=== PATIENT | female | born 1945 | race Caucasian/White ===

== ENCOUNTER → 2023-11-04 13:03 | Outpatient (REF) | payer OTHER, SELFPAY | LOC: WDC 13:03 | PROVIDERS: ATTENDING PHYSICIAN Internal Medicine Hematology & Oncology; FAMILY PHYSICIAN Internal Medicine | DX: R92.8 Other abnormal and inconclusive findings on diagnostic imaging of breast (principal); Z85.3 Personal history of malignant neoplasm of breast; C50.111 Malignant neoplasm of central portion of right female breast | CPT/HCPCS: 76642 ==

== ENCOUNTER → 2024-04-21 10:43 | Outpatient (REF) | payer OTHER, SELFPAY | LOC: MRI 3T 10:43 | PROVIDERS: ATTENDING PHYSICIAN Surgery; FAMILY PHYSICIAN Internal Medicine | DX: C50.411 Malignant neoplasm of upper-outer quadrant of right female breast (principal); N64.59 Other signs and symptoms in breast; R92.8 Other abnormal and inconclusive findings on diagnostic imaging of breast | CPT/HCPCS: 77049; A9585 ==

== ENCOUNTER 2025-05-09 05:54 | Day surgery (SDC) | payer OTHER, SELFPAY ==
[2025-04-25 11:26] LABS: Hematocrit 40.2 % (37.0-47.0); Hemoglobin 13.8 g/dL (12.0-16.0); Mean Corp Hgb Conc. 34.3 g/dL (33.0-37.0); Mean Corpuscular Volume 84.3 fL (81.0-99.0); Platelet Count 233 10^3/uL (130-400); Red Cell Dist. Width 12.2 % (11.5-14.5)
[2025-04-25 11:57] LABS: ALT (SGPT) 16 U/L (0-35); AST (SGOT) 22 U/L (14-36); Albumin 4.0 g/dl (3.5-5.0); Alkaline Phosphatase 101 U/L (38-126); Blood Urea Nitrogen 15 mg/dl (7-17); Calcium 10.8 mg/dl (8.4-10.2); Carbon Dioxide 24 mmol/L (22-30); Chloride 110 mmol/L (98-107); Glucose 84 mg/dl (70-99); Potassium 4.4 mmol/L (3.5-5.1); Sodium 141 mmol/L (135-145); Total Protein 6.9 g/dl (6.3-8.2); eGFR > 60.00
[2025-04-25 13:53] VITALS: BMI 27.7
[2025-04-25 14:53] LABS: Glycohemoglobin (HgbA1c) 5.2 % (4.0-5.6)
[2025-04-25 16:03] VITALS: BMI 27.7
--- NOTE | 2025-04-26 10:55 | VNURNOTE ---
Patient is scheduled for an elective R TKA on 05/09 - she is a same day patient with Dr Reynoso. Spoke with patient prior to surgery. Introduced role of [facility] Liaison. Patient reports that she lives with her spouse in a split level story home.
There are 3 steps to enter and a 6 to the second floor.
There is a bathroom on the upper level. She has a rolling walker.
PCP is Dr Juan Manuel Villavicencio
Discussed [facility] joint protocol and post surgical plans.
Reviewed that she will have VN services initially and will then start outpatient PT.
Patient selects [facility] for home care needs and will go [facility]. She has to schedule appt. Advised to schedule May 15. Provided contact number for Amb Center.
Patient is in agreement with plan and states that her spouse will be home with her. Advised to bring RW day of surgery. Referral placed in [facility].
Plan: [facility] per [facility] joint protocol 05/09 then outpt PT TBD (recommended to schedule 05/15)
[2025-05-09] VITALS (16 sets, daily range): BP systolic 105–178; BP diastolic 53–102; PULSE 52; O2SAT 96
[2025-05-09] MEDS: CELEBREX 200 MG PO (06:19)
[2025-05-09] MEDS: TYLENOL 650 MG PO (06:19)
[2025-05-09] MEDS: NORMOSOL-R/PLASMALYTE-A 1000 IV ×2 (06:34→10:31)
--- NOTE | 2025-05-09 07:37 | W.DS.TRANS ---
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
-
Discharge Instructions:
Sleep Apnea Risk Low
Discharge Diagnosis/Procedures R TKA Dr. Reynoso 05/09/25-SDS
Diet As tolerated
Driving Restrictions No driving
Bathing Restrictions OK to Shower
Other Services PT
Instructions:
Stand-Alone Forms: SDS Total Hip and Knee D/C
Changes to Home Medications: Yes
Discharge Medications:
DC Medications w/original date entered in [employer]
Turmeric With Black Pepper 1 cap PO DAILY 04/23/25
Held on 05/09/25. Instructions: Resume on 05/17/25.
anastrozole 1 mg tablet (Arimidex) 1 mg PO HS 04/23/25
collagen 2 tab PO DAILY 04/23/25
Held on 05/09/25. Instructions: Resume on 05/17/25.
ketotifen fumarate 0.025 % (0.035 %) eye drops (Zaditor) 1 drp ophthalmic (eye) HS 04/23/25
magnesium 2 tab PO DAILY 04/23/25
[id number] 250 mg-dha 90 mg-epa 160 lm-uqug-tijx-zeax capsule (Ocuvite Adult 50 Plus) 2 cap PO QPM 04/23/25
Held on 05/09/25. Instructions: Resume on 05/17/25.
multivitamin 1 tab PO DAILY 04/23/25
Held on 05/09/25. Instructions: Resume on 05/17/25.
sertraline 100 mg tablet (Zoloft) 100 mg PO HS 04/23/25
mupirocin 2 % topical ointment 1 applic topical BID infection prevention #1 tube 04/24/25
acetaminophen 325 mg tablet (Tylenol) 650 mg (2 x 325 mg) PO QID #1 tab 05/09/25
aspirin 325 mg tablet 325 mg PO DAILY blood clot prevention #1 tab 05/09/25
celecoxib 200 mg capsule 200 mg PO DAILY Anti-inflammatory #14 caps 05/09/25
dexamethasone 4 mg tablet 4 mg PO BID inflammation #6 tabs 05/09/25
docusate sodium 100 mg capsule (Colace) 100 mg PO BID stool softner #1 cap 05/09/25
famotidine 20 mg tablet 20 mg PO HS GI prophylaxis #30 tabs 05/09/25
gabapentin 300 mg capsule 300 mg PO HS sleep/pain #10 caps 05/09/25
metoprolol succinate 100 mg tablet,extended release 24 hr (Toprol XL) 100 mg PO HS #0 tabs 05/09/25
ondansetron 4 mg disintegrating tablet 4 mg PO Q6H PRN n/v #20 tabs 05/09/25
oxycodone 5 mg tablet 5 mg PO Q6H PRN 1 tab moderate pain, 2 tabs severe pain #30 tabs 05/09/25
sennosides 8.6 mg tablet (Senokot) 17.2 mg (2 x 8.6 mg) PO BID PRN laxative-CONSTIPATION #2 tabs 05/09/25
Home Medication Changes
mupirocin 2 % topical ointment 1 applic topical BID infection prevention #1 tube 04/24/25
acetaminophen 325 mg tablet (Tylenol) 650 mg (2 x 325 mg) PO QID #1 tab 05/09/25
aspirin 325 mg tablet 325 mg PO DAILY blood clot prevention #1 tab 05/09/25
celecoxib 200 mg capsule 200 mg PO DAILY Anti-inflammatory #14 caps 05/09/25
dexamethasone 4 mg tablet 4 mg PO BID inflammation #6 tabs 05/09/25
docusate sodium 100 mg capsule (Colace) 100 mg PO BID stool softner #1 cap 05/09/25
famotidine 20 mg tablet 20 mg PO HS GI prophylaxis #30 tabs 05/09/25
gabapentin 300 mg capsule 300 mg PO HS sleep/pain #10 caps 05/09/25
metoprolol succinate 100 mg tablet,extended release 24 hr (Toprol XL) 100 mg PO HS #0 tabs 05/09/25
ondansetron 4 mg disintegrating tablet 4 mg PO Q6H PRN n/v #20 tabs 05/09/25
oxycodone 5 mg tablet 5 mg PO Q6H PRN 1 tab moderate pain, 2 tabs severe pain #30 tabs 05/09/25
sennosides 8.6 mg tablet (Senokot) 17.2 mg (2 x 8.6 mg) PO BID PRN laxative-CONSTIPATION #2 tabs 05/09/25
Pending Results: No
[2025-05-09] MEDS: ZOFRAN 4 MG IV (08:36)
[2025-05-09] MEDS: TYLENOL 1000 MG PO (10:32)
[2025-05-09] MEDS: ANCEF 5 IV (11:17)
[2025-05-09] MEDS: ROXICODONE 5 MG PO ×2 (11:23→12:29)
== END 2025-05-09 13:31 | disposition home or self-care (01) ==
LOC: SDS 05:54
PROVIDERS: ATTENDING PHYSICIAN Orthopaedic Surgery; FAMILY PHYSICIAN Internal Medicine; OTHER PHYSICIAN Physician Assistant Medical
DX: M17.11 Unilateral primary osteoarthritis, right knee (principal)
CPT/HCPCS: 27447; C1776; 36415; 73560; 80053; 83036; 85027; 87070; 93005; 93971; 97116; 97162; C1713

== ENCOUNTER 2025-06-11 12:09 | Outpatient (RCR) | payer OTHER, SELFPAY | END 2025-06-11 23:59 | disposition home or self-care (01) | LOC: RPT 12:09 | PROVIDERS: ATTENDING PHYSICIAN Orthopaedic Surgery; FAMILY PHYSICIAN Internal Medicine | DX: Z47.1 Aftercare following joint replacement surgery (principal); Z73.6 Limitation of activities due to disability; M25.561 Pain in right knee; R26.89 Other abnormalities of gait and mobility; M62.81 Muscle weakness (generalized); Z96.651 Presence of right artificial knee joint | CPT/HCPCS: 97110; 97112; 97161; 97530 ==

== ENCOUNTER 2025-06-28 07:20 | Outpatient (RCR) | payer OTHER, SELFPAY | END 2025-07-03 08:09 | disposition home or self-care (01) | LOC: RPT 07:20 | PROVIDERS: ATTENDING PHYSICIAN Orthopaedic Surgery; FAMILY PHYSICIAN Internal Medicine | DX: Z47.1 Aftercare following joint replacement surgery (principal); Z73.6 Limitation of activities due to disability; M25.561 Pain in right knee; R26.89 Other abnormalities of gait and mobility; M62.81 Muscle weakness (generalized); Z96.651 Presence of right artificial knee joint | CPT/HCPCS: 97110; 97112; 97530 ==

== ENCOUNTER → 2025-08-24 13:04 | Outpatient (REF) | payer OTHER, SELFPAY | LOC: WDC 13:04 | PROVIDERS: ATTENDING PHYSICIAN Internal Medicine Hematology & Oncology; FAMILY PHYSICIAN Internal Medicine | DX: Z12.31 Encounter for screening mammogram for malignant neoplasm of breast (principal); Z85.3 Personal history of malignant neoplasm of breast; C50.111 Malignant neoplasm of central portion of right female breast; N64.59 Other signs and symptoms in breast; N60.09 Solitary cyst of unspecified breast | CPT/HCPCS: 77063; 77067 ==